=== PATIENT | male | born 1965 | race African-American/Black ===

== ENCOUNTER 2021-10-30 12:04 | Emergency (ER) | payer SELFPAY ==
[~2021-10-30] VITALS: Ht 185.4 cm; Wt 75.0 kg
[2021-10-30 13:21] LABS: HEMATOCRIT. 35.9 % (42.0-52.0); HEMOGLOBIN. 12.1 g/dL (14.0-18.0); MEAN CORPUSCULAR HEMOGLOBIN 32.8 pg (28.0-32.0); MEAN CORPUSCULAR VOLUME 97.3 fL (80.0-94.0); MEAN PLATELET VOLUME 6.7 fl (7.4-10.4); PLATELET 272 x1000/uL (130-400); RED BLOOD CELL COUNT 3.69 mill/uL (4.7-6.1); RED CELL DISTRIBUTION WIDTH 15.5 % (11.6-14.6)
[2021-10-30 13:33] LABS: CHLORIDE 105 mEq/L (98-107)
[2021-10-30 13:37] LABS: PLATELET ESTIMATE NORMAL
[2021-10-30] MEDS ORDERED: KETOROLAC 15MG/ML VIAL IM ONE (14:45)
[2021-10-30 15:13] VITALS: BP 129/93
[2021-10-30 15:50] LABS: CLARITY URINE CLEAR (CLEAR); COLOR URINE YELLOW (YELLOW); SPECIFIC GRAVITY URINE 1.019 (1.005-1.030)
[2021-10-30 15:51] LABS: KETONES URINE NEGATIVE (NEGATIVE); LEUKOCYTE ESTERASE URINE NEGATIVE (NEGATIVE); NITRITE URINE NEGATIVE (NEGATIVE); OCCULT BLOOD URINE NEGATIVE (NEGATIVE); PROTEIN URINE NEGATIVE (NEGATIVE)
== END 2021-10-30 16:25 | disposition home or self-care (01) ==
LOC: ER 12:04
DX: R10.31 Right lower quadrant pain (principal); F12.10 Cannabis abuse, uncomplicated
CPT/HCPCS: 36415; 80053; 81003; 83690; 85025; 96372; 99283; J1885

== ENCOUNTER 2021-11-17 23:24 | Emergency (ER) | payer SELFPAY ==
[~2021-11-17] VITALS: Ht 188 cm; Wt 82.0 kg
[2021-11-17] MEDS ORDERED: SODIUM CHLORIDE 0.9% 1,000 ML IV ONE (23:45)
[2021-11-18 00:55] LABS: HEMATOCRIT. 39.1 % (42.0-52.0); HEMOGLOBIN. 12.9 g/dL (14.0-18.0); MEAN CORPUSCULAR VOLUME 97.5 fL (80.0-94.0); MEAN PLATELET VOLUME 6.6 fl (7.4-10.4); PLATELET 224 x1000/uL (130-400); RED BLOOD CELL COUNT 4.02 mill/uL (4.7-6.1); RED CELL DISTRIBUTION WIDTH 14.4 % (11.6-14.6)
[2021-11-18 00:59] LABS: CHLORIDE 101 mEq/L (98-107)
[2021-11-18 02:22] LABS: CLARITY URINE CLEAR (CLEAR); COLOR URINE YELLOW (YELLOW); KETONES URINE NEGATIVE (NEGATIVE); LEUKOCYTE ESTERASE URINE NEGATIVE (NEGATIVE); NITRITE URINE NEGATIVE (NEGATIVE); OCCULT BLOOD URINE 1+ (NEGATIVE); PH URINE 5.5 (4.5-8.0); PROTEIN URINE NEGATIVE (NEGATIVE); SPECIFIC GRAVITY URINE 1.011 (1.005-1.030); UROBILINOGEN URINE 0.2 E.U./dL (0.2-1.0)
[2021-11-18 03:11] VITALS: BP 135/81
[2021-11-18 07:41] LABS: PLATELET ESTIMATE NORMAL
== END 2021-11-18 03:12 | disposition home or self-care (01) ==
LOC: ER 23:24
DX: R19.7 Diarrhea, unspecified (principal); E86.0 Dehydration; F12.10 Cannabis abuse, uncomplicated
CPT/HCPCS: 36415; 80053; 81003; 83690; 85025; 96360; 99283; J7030

== ENCOUNTER 2024-06-14 12:42 | Emergency (ER) | payer MEDICAID ==
[~2024-06-14] VITALS: Ht 188 cm; Wt 78.9 kg
[2024-06-14 13:13] VITALS: BP 149/89; PULSE 62; RESP 18; TEMP 98.6; O2SAT 100
[2024-06-14] MEDS: CEFTRIAXONE SODIUM 500MG VIAL IM ONE (15:03)
[2024-06-14] MEDS: DOXYCYCLINE HYCLATE 100MG CAPSULE PO ONE (15:03)
[2024-06-14] MEDS ORDERED: DOXY100C74 MT (15:07)
[2024-06-14 15:16] LABS: CLARITY URINE CLEAR (CLEAR); COLOR URINE YELLOW (YELLOW); GLUCOSE URINE NEGATIVE (NEGATIVE); KETONES URINE NEGATIVE (NEGATIVE); LEUKOCYTE ESTERASE URINE NEGATIVE (NEGATIVE); NITRITE URINE NEGATIVE (NEGATIVE); OCCULT BLOOD URINE TRACE (NEGATIVE); PH URINE 6.5 (4.5-8.0); PROTEIN URINE NEGATIVE (NEGATIVE); SPECIFIC GRAVITY URINE 1.022 (1.005-1.030); UROBILINOGEN URINE 0.2 E.U./dL (0.2-1.0)
[2024-06-14 16:16] LABS: BACTERIA URINE 1+
[2024-06-14 16:17] LABS: RBC URINE 0-2 /hpf (0-2); SQUAMOUS EPITHELIAL CELL URINE RARE /lpf (RARE/1+); WBC URINE 0-2 /hpf (0-2)
== END 2024-06-14 15:19 | disposition home or self-care (01) ==
LOC: ER 12:58
DX: N48.89 Other specified disorders of penis (principal); F12.90 Cannabis use, unspecified, uncomplicated
CPT/HCPCS: 99283; 81003; 96372; 87591; J0696